=== PATIENT | male | born 1985 | race Caucasian/White ===

== ENCOUNTER 2024-09-29 13:03 | Emergency (ER) | payer MEDICAID ==
[~2024-09-29] VITALS: Ht 175.3 cm; Wt 86.0 kg
[2024-09-29 13:07] VITALS: BP 148/108; PULSE 116; RESP 16; TEMP 97.9; O2SAT 95
--- NOTE | 2024-09-29 13:41 | ELECTROCARDIOGRAPH REPORT ---
[facility] Test Date: 2024-09-29 Test Time: 13:39:12 Pat Name: SIENA RODRIGUEZ Department: EMERGENCY ROOM Room: Gender: M [employer] Director: : [id number] Requested By: IMMANUEL PARK Order Number: [id number] Reading MD: Measurements Intervals [place] Rate: 95 P: 48 NH: 141 QRS: -13 QRSD: 82 T: 38 QT: 342 QTc: 430 Interpretive Statements Sinus rhythm Please click the below link to view image of tracing.
--- NOTE | 2024-09-29 14:18 | RADIOLOGY REPORT ---
CHEST RADIOGRAPH Indication: sepsis Technique: Single frontal view of the chest was obtained Comparison: None FINDINGS: Lines and Tubes: None Lungs: No focal consolidation. Pleura: No effusion. No pneumothorax. Cardiomediastinal contours: Unremarkable Bones: No acute osseous abnormality. IMPRESSION: 1. No acute cardiopulmonary disease.
--- NOTE | 2024-09-29 14:45 | Physician Documentation ---
History of Present Illness ~ Chief Complaint: Medical Clearance Stated Complaint: MED CLEARANCE Time Seen by MD: 13:25 HPI 39-year-old male reports ER for medical clearance. 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 Patient states he has had infection to the right lower leg for several months. Patient is brought in by police for medical clearance. Endorses pain but denies fevers or chills. No other complaints at this time Past Medical History Smoking Status: Current every day smoker Physical Exam Vital Signs: Temperature: 97.9, Source: Oral, Heart Rate: 116, Respiratory Rate: 16, BP: 148/108, Pulse Oximetry: 95, Weight: 86.000 Oxygen Flow Rate: 0 Physical Exam General: Well developed, well nourished, no distress. HEENT: Atraumatic, normal conjunctiva, moist mucous membranes. Neck: Full range of motion, supple. Respiratory: Lungs clear, no respiratory distress. Chest: No accessory muscle use, nontender. Cardiovascular: Regular rate and rhythm. Gastrointestinal: Soft, nontender, nondistended. Bowel sounds present. Extremities: Right lower extremity exam: Positive for multiple surgical incisions which are healed globally throughout the right lower extremity with erythema in serous discharge coming from multiple wounds to the lower extremity with the anterior and lateral to the distal tibia and ankle. Compartments soft compressible. Back: No midline tenderness, no CVA tenderness. Neurologic: Oriented x4. Distal gross motor and sensory intact all four extremities. Moves all 4 extremities spontaneously. Psychiatric: Normal mood and affect. Skin: Normal color, warm and dry. No edema, no ecchymosis Progress Results/Orders Results/Orders Orders - IMMANUEL TURNER Cbc/Diff (09/29/24 13:29) ESR (09/29/24 13:29) C-Reactive Protein (09/29/24 13:29) Culture Blood (09/29/24 13:29) Urinalysis, Cult If Indicated (09/29/24 13:29) Chest,Single View (09/29/24 13:29) CMP (09/29/24 13:29) Hs Troponin I W Calculations (09/29/24 13:29) Lacticsepsis (09/29/24 13:29) Drug Screen, Urine (09/29/24 13:29) Ct Lower Extremity (09/29/24 13:29) Completed Orders - IMMANUEL TURNER Electrocardiogram (09/29/24 13:29) Chest,Single View (09/29/24 13:29) Vital Signs 09/29/24 13:07 Temp 97.9 Pulse 116 Resp 16 B/P (MAP) 148/108 Pulse Ox 95 O2 Flow Rate 0 Medical Decision Making Additional info obtained from: old records Findings After detailed discussion and joint medical decision-making, diagnostic and imaging results were discussed with the patient. At this time patient eloped prior to having a CT scan and all imaging and diagnostics discussed with the patient. Patient was not re-evaluated by myself. Differential Dx:Considerations: Include: Other (Infected hardware, cellulitis, abscess, sepsis) Departure Disposition: LEFT AWOL/ELOPED Impression: Primary Impression: Cellulitis Referrals: NO PRIMARY CARE PROVIDER (PCP) Signature Scribe Signature: None used Attestation: Scribed for Immanuel Turner by Immanuel QUEZADA . 09/29/24 14:46 IMMANUEL TURNER September 29, 2024 14:45
[2024-09-29 14:46] LABS: BASOPHILS % (AUTO) 0.9 % (0-1); EOSINOPHILS # (AUTO) 0.2 X10'3 (0-0.9); EOSINOPHILS % (AUTO) 4.2 % (0-6); HEMATOCRIT 42.4 % (42.0-52.0); HEMOGLOBIN 14.3 g/dl (14.0-17.9); LYMPHOCYTES # (AUTO) 1.3 X10'3 (1.1-4.8); MEAN CORPUSCULAR HEMOGLOBIN 27.3 PG (27.0-31.0); MEAN CORPUSCULAR HGB CONC 33.7 g/dL (33.0-36.5); MONOCYTES # (AUTO) 0.3 X10'3 (0-0.9); MONOCYTES % (AUTO) 8.1 % (2-12); NEUTROPHILS # (AUTO) 2.2 X10'3 (1.8-7.7); NEUTROPHILS % (AUTO) 53.8 % (42-75); PLATELET COUNT 245 X10'3 (140-440); RED BLOOD COUNT 5.24 X10'6 (4.70-6.10); RED CELL DISTRIBUTION WIDTH 16.3 % (11.5-14.5)
[2024-09-29 15:05] LABS: ALANINE AMINOTRANSFERASE 52 U/L (12-78); ALBUMIN 3.5 G/DL (3.4-5.0); ALBUMIN/GLOBULIN RATIO 0.7 (1.1-1.5); ALKALINE PHOSPHATASE 132 IU/L (46-116); ANION GAP 7 (8-16); ASPARTATE AMINO TRANSFERASE 28 U/L (10-37); BILIRUBIN,TOTAL 0.5 MG/DL (0.1-1.0); BLOOD UREA NITROGEN 10 MG/DL (7-18); BUN/CREATININE RATIO 10.2 (10.0-20.0); C-REACTIVE PROTEIN 2.99 MG/DL (0.0-0.5); CALCIUM 8.9 MG/DL (8.5-10.1); CHLORIDE 104 MMOL/L (99-107); CREATININE 0.98 MG/DL (0.60-1.10); GLUCOSE 104 MG/DL (70-104); POTASSIUM 4.3 MMOL/L (3.5-5.1); SODIUM 138 MMOL/L (135-145); TOTAL CARBON DIOXIDE 27.2 MMOL/L (24-32); TOTAL PROTEIN 8.6 G/DL (6.4-8.2); eCRCL 102 ML/MIN; eGFR 86 ML/MIN
== END 2024-09-29 14:37 | disposition left against medical advice (07) ==
LOC: EDBD 13:04 → ER 13:04
DX: L03.115 Cellulitis of right lower limb (principal); F17.200 Nicotine dependence, unspecified, uncomplicated; I49.8 Other specified cardiac arrhythmias
CPT/HCPCS: 36415; 71045; 80053; 83605; 84484; 85025; 85651; 86140; 87040; 93005; 99285